=== PATIENT | female | born 1970 | race Caucasian/White ===

== ENCOUNTER 2022-08-05 10:02 | Day surgery (SDC) | payer BC ==
[2022-08-04 17:19] VITALS: BMI 33.5
[2022-08-05] MEDS ORDERED: ePHEDrine Sulfate 50 MG/10 ML VIAL ONE (11:35)
[2022-08-05] MEDS ORDERED: PHENYLEPHRINE-NS 100 MCG/ML 10 ML SYRINGE ONE (11:35)
[2022-08-05] MEDS ORDERED: fentaNYL 50 mcg/mL 1 mL Vial ONE (11:35)
[2022-08-05] MEDS ORDERED: Ondansetron PF 4 MG/2 ML Vial ONE ×3 (11:35→11:42)
[2022-08-05] MEDS ORDERED: Famotidine/PF 20 mg/2ml Vial ONE (11:35)
[2022-08-05] MEDS ORDERED: Metoclopramide HCl 10 MG/2 ML VIAL ONE (11:42)
[2022-08-05] MEDS ORDERED: PROPOFOL 200 MG/20 ML VIAL ONE (11:42)
[2022-08-05] MEDS ORDERED: Lidocaine 1% PF 5 ML VIAL ONE (11:42)
[2022-08-05] MEDS ORDERED: Dexamethasone 20 MG/5 ML VIAL ONE (11:42)
[2022-08-05] MEDS ORDERED: Lidocaine 4% PF 5 ML AMP ONE (12:00)
[2022-08-05] MEDS ORDERED: Maxitrol 0.1% Opth Oint 3.5 GM TUBE ONE (12:00)
[2022-08-05] MEDS ORDERED: Bupivacaine 0.75% 10 ML VIAL ONE (12:00)
== END 2022-08-05 14:20 | disposition home or self-care (01) ==
LOC: SDC 10:02
PROVIDERS: ATTEND Ophthalmology Retina Specialist
PROC: 08Q1XZZ Repair Left Eye, External Approach (ICD-10-PCS; principal; 2022-08-05)
DX: S05.22XA Ocular laceration and rupture with prolapse or loss of intraocular tissue, left eye, initial encounter (principal); I10 Essential (primary) hypertension; Z79.899 Other long term (current) drug therapy; X58.XXXA Exposure to other specified factors, initial encounter
CPT/HCPCS: J1100; J2405; J2704; J2765; J3010; J3490; S0028

== ENCOUNTER 2022-09-23 12:10 | Day surgery (SDC) | payer BC ==
[2022-09-22 09:11] VITALS: BMI 32.8
[~2022-09-23 12:10] MED LIST: EPINEPHrine 0.3 MG in Ophthalmic Irrigation Solution 500 ML IRR SCH
[2022-09-23] MEDS ORDERED: Cyclopentolate 1% Opth Drop 2 ML BOT ONE (12:27)
[2022-09-23] MEDS ORDERED: PHENYLephrine 2.5% Ophth Soln 15 ml Bottle ONE (12:27)
[2022-09-23] MEDS ORDERED: fentaNYL 50 mcg/mL 1 mL Vial ONE (12:55)
[2022-09-23] MEDS ORDERED: Midazolam HCl 2 mg/2 ml Vial ONE ×2 (12:55→13:08)
[2022-09-23] MEDS ORDERED: Famotidine/PF 20 mg/2ml Vial ONE (13:00)
[2022-09-23] MEDS ORDERED: Triamcinolone 40 MG/ML VIAL ONE (13:20)
[2022-09-23] MEDS ORDERED: Dexamethasone 20 MG/5 ML VIAL ONE (13:20)
[2022-09-23] MEDS ORDERED: Lidocaine 1% PF 5 ML VIAL ONE (13:20)
[2022-09-23] MEDS ORDERED: CEFAZOLIN 1 GM VIAL ONE (13:20)
[2022-09-23] MEDS ORDERED: Maxitrol 0.1% Opth Oint 3.5 GM TUBE ONE (13:20)
[2022-09-23] MEDS ORDERED: Ondansetron PF 4 MG/2 ML Vial ONE (13:20)
[2022-09-23] MEDS ORDERED: PROPOFOL 200 MG/20 ML VIAL ONE (13:20)
== END 2022-09-23 15:54 | disposition home or self-care (01) ==
LOC: SDC 12:10
PROVIDERS: ATTEND Ophthalmology Retina Specialist
PROC: 08B53ZZ Excision of Left Vitreous, Percutaneous Approach (ICD-10-PCS; principal; 2022-09-23)
PROC: 08QF3ZZ Repair Left Retina, Percutaneous Approach (ICD-10-PCS; principal; 2022-09-23)
DX: H26.102 Unspecified traumatic cataract, left eye (principal); H43.12 Vitreous hemorrhage, left eye; H25.12 Age-related nuclear cataract, left eye
CPT/HCPCS: J0171; J0690; J1100; J2250; J2405; J2704; J3010; J3301; S0028

== ENCOUNTER 2022-11-11 07:00 | Day surgery (SDC) | payer BC ==
[2022-11-10 14:21] VITALS: BMI 31.5
[2022-11-11] MEDS ORDERED: PHENYLephrine 2.5% Ophth Soln 15 ml Bottle ONE (07:51)
[2022-11-11] MEDS ORDERED: fentaNYL 50 mcg/mL 1 mL Vial ONE (08:41)
[2022-11-11] MEDS ORDERED: Midazolam HCl 2 mg/2 ml Vial ONE (08:41)
[2022-11-11] MEDS ORDERED: PROPOFOL 200 MG/20 ML VIAL ONE (08:50)
[2022-11-11] MEDS ORDERED: Lidocaine 4% PF 5 ML AMP ONE (08:50)
[2022-11-11] MEDS ORDERED: CEFAZOLIN 1 GM VIAL ONE (08:50)
[2022-11-11] MEDS ORDERED: Bupivacaine 0.75% 10 ML VIAL ONE (08:50)
[2022-11-11] MEDS ORDERED: Lidocaine 1% PF 5 ML VIAL ONE (08:50)
[2022-11-11] MEDS ORDERED: Maxitrol 0.1% Opth Oint 3.5 GM TUBE ONE (08:50)
[2022-11-11] MEDS ORDERED: Triamcinolone 40 MG/ML VIAL ONE (08:50)
== END 2022-11-11 10:30 | disposition home or self-care (01) ==
LOC: SDC 07:00
PROVIDERS: ATTEND Ophthalmology Retina Specialist
PROC: 08T53ZZ Resection of Left Vitreous, Percutaneous Approach (ICD-10-PCS; principal; 2022-11-11)
DX: H33.42 Traction detachment of retina, left eye (principal)
CPT/HCPCS: C1814; J0171; J0690; J2250; J2704; J3010; J3301; J3490

== ENCOUNTER 2022-12-09 07:29 | Day surgery (SDC) | payer BC ==
[2022-12-05 15:38] VITALS: BMI 31.5
[~2022-12-09 07:29] MED LIST changes: +Midazolam HCl 2 mg/2 ml Vial ONE; +fentaNYL 50 mcg/mL 1 mL Vial ONE
[2022-12-09] MEDS ORDERED: Cyclopentolate W/ Phenylephrin 40 DROP/2 ML BOT ONE (08:29)
[2022-12-09] MEDS ORDERED: Lidocaine 1% PF 5 ML VIAL ONE (09:12)
[2022-12-09] MEDS ORDERED: PROPOFOL 200 MG/20 ML VIAL ONE (09:12)
[2022-12-09] MEDS ORDERED: Lidocaine 4% PF 5 ML AMP ONE (09:12)
[2022-12-09] MEDS ORDERED: Maxitrol 0.1% Opth Oint 3.5 GM TUBE ONE (09:12)
[2022-12-09] MEDS ORDERED: Bupivacaine 0.75% 10 ML VIAL ONE (09:12)
[2022-12-09] MEDS ORDERED: Triamcinolone 40 MG/ML VIAL ONE (09:12)
[2022-12-09] MEDS ORDERED: CEFAZOLIN 1 GM VIAL ONE (09:12)
== END 2022-12-09 10:48 | disposition home or self-care (01) ==
LOC: SDC 07:29
PROVIDERS: ATTEND Ophthalmology Retina Specialist
PROC: 08T43ZZ Resection of Right Vitreous, Percutaneous Approach (ICD-10-PCS; principal; 2022-12-09)
DX: H33.42 Traction detachment of retina, left eye (principal)
CPT/HCPCS: C1814; J0171; J0690; J2250; J2704; J3010; J3301; J3490

== ENCOUNTER 2023-03-10 09:52 | Day surgery (SDC) | payer BC ==
[2023-03-09 11:38] VITALS: BMI 31.5
[~2023-03-10 09:52] MED LIST changes: -Midazolam HCl 2 mg/2 ml Vial ONE; -fentaNYL 50 mcg/mL 1 mL Vial ONE
[2023-03-10] MEDS ORDERED: Cyclopentolate W/ Phenylephrin 5 ML BOT ONE (10:20)
[2023-03-10] MEDS ORDERED: Midazolam HCl 2 mg/2 ml Vial ONE (11:19)
[2023-03-10] MEDS ORDERED: PROPOFOL 40 ML ONE (11:19)
[2023-03-10] MEDS ORDERED: fentaNYL 50 mcg/mL 1 mL Vial ONE (11:19)
[2023-03-10] MEDS ORDERED: Lidocaine 1% PF 5 ML VIAL ONE (11:45)
[2023-03-10] MEDS ORDERED: Bupivacaine 0.75% 10 ML VIAL ONE (11:45)
[2023-03-10] MEDS ORDERED: Lidocaine 4% PF 5 ML AMP ONE (11:45)
[2023-03-10] MEDS ORDERED: Triamcinolone 40 MG/ML VIAL ONE (11:45)
[2023-03-10] MEDS ORDERED: Maxitrol 0.1% Opth Oint 3.5 GM TUBE ONE (11:45)
[2023-03-10] MEDS ORDERED: Indocyanine Green 25 MG/10 ML VIAL ONE (11:45)
[2023-03-10] MEDS ORDERED: CEFAZOLIN 1 GM VIAL ONE (11:45)
== END 2023-03-10 13:25 | disposition home or self-care (01) ==
LOC: SDC 09:52
PROVIDERS: ATTEND Ophthalmology Retina Specialist
PROC: 08T53ZZ Resection of Left Vitreous, Percutaneous Approach (ICD-10-PCS; principal; 2023-03-10)
DX: H35.372 Puckering of macula, left eye (principal)
CPT/HCPCS: J0171; J0690; J2250; J2704; J3010; J3301; J3490

== ENCOUNTER 2023-05-26 07:29 | Day surgery (SDC) | payer BC ==
[2023-05-25 13:31] VITALS: BMI 32.4
[2023-05-26] MEDS ORDERED: PHENYLephrine 2.5% Ophth Soln 15 ml Bottle ONE (08:12)
[2023-05-26] MEDS ORDERED: Cyclopentolate 2% Opth Drop 15 ML BOT ONE (08:27)
[2023-05-26] MEDS ORDERED: Midazolam HCl 2 mg/2 ml Vial ONE ×2 (09:32→09:46)
[2023-05-26] MEDS ORDERED: fentaNYL 50 mcg/mL 1 mL Vial ONE ×2 (09:33→09:36)
== END 2023-05-26 12:00 | disposition home or self-care (01) ==
LOC: SDC 07:29
PROVIDERS: ATTEND Ophthalmology Retina Specialist
PROC: 08NF3ZZ Release Left Retina, Percutaneous Approach (ICD-10-PCS; principal; 2023-05-26)
PROC: 08T53ZZ Resection of Left Vitreous, Percutaneous Approach (ICD-10-PCS; principal; 2023-05-26)
DX: H33.42 Traction detachment of retina, left eye (principal)
CPT/HCPCS: C1814; J0171; J2250; J3010